=== PATIENT | male | born 1975 | race Caucasian/White ===

== ENCOUNTER 2023-10-29 15:05 | Emergency (ER) | payer BC ==
--- NOTE | 2023-10-29 15:35 | ED Physician Documentation ---
PD HPI LOWER EXT INJURY - Stated complaint Stated Complaint: RT FOOT INJ - Chief complaint Chief Complaint: Ext Problem - History obtained from History obtained from: Patient - Additional information Additional information: 48-year-old gentleman who is [place] from [place] (he lives and works in [facility] for the [employer]) had heel spur surgery on the right foot done in [place] 2 weeks ago. He was doing very well postop and was cleared for regular shoe use by his intelligence analyst at the postop visit. 2 nights ago he was getting out of the car and basically smacked his foot down hard and has significantly more pain now. PD PAST MEDICAL HISTORY - Past Medical History Past Medical History: No - Past Surgical History Past Surgical History: Yes - Present Medications Home Medications: Ambulatory Orders Medication Instructions Recorded Confirmed cephALEXin [Keflex] 500 mg PO Q6H #28 cap 10/29/23 - Allergies Allergies/Adverse Reactions: Allergies Allergy/AdvReac Type Severity Reaction Status Date / Time No Known Drug Allergies Allergy Verified 10/29/23 15:14 - Social History Does the pt smoke?: No Smoking Status: Never smoker Does the pt drink ETOH?: No Does the pt have substance abuse?: No - Immunizations Immunizations are current?: Yes PD ED PE NORMAL - Vitals Vital signs reviewed: Yes - General General: Alert and oriented X 3, No acute distress - Extremities Extremities: Other (There is a tiny dehisced incision on the medial side of the right calcaneus with diffuse tenderness in that area. There was just a drop of material in it which was sent for culture. No cellulitis though.) - Neuro Neuro: Alert and oriented X 3, Normal speech Results - Vitals Vitals: Vital Signs - 24 hr 10/29/23 15:11 Temperature 36.7 C Heart Rate 96 Respiratory 16 Rate Blood Pressure 143/92 H O2 Saturation 99 - Rads (name of study) R foot XR-NAD Relevant Findings:: Final report received, EMP independent interpretation of test PD Medical Decision Making - ED course ED course: He is 2 weeks out from a heel spur surgery and has increased pain over the last 2 days after minor trauma. The wound is slightly dehisced and there is just a little bit of possible pus in the wound which was sent for culture although there is no cellulitis or other sign of infection. His x-ray was negative for new findings. He is placed on Keflex pending his wound culture. Advised to go back into the boot. He has follow-up with his intelligence analyst on Wednesday, 3 days. Departure - Departure Disposition: 01 Home, Self Care Clinical Impression: Pain of lower extremity Qualifiers: Laterality: right Qualified Code(s): M79.604 - Pain in right leg Condition: Good Record reviewed to determine appropriate education?: Yes Prescriptions: cephALEXin [Keflex] 500 mg PO Q6H #28 cap Comments: I am worried about an early infection and I sent antibiotics electronically to the [facility] in [place]. I would go back in the boot until you follow-up with your intelligence analyst on Wednesday as scheduled. We are performing a wound culture, the results should be done in 48-72 hours. If antibiotic change is necessary we will call you. Return if worse in the meantime, especially if you develop increased pain, fevers, cannot keep down the medication. Forms: PCP List
--- NOTE | 2023-10-29 16:08 | CONSULTATION NOTE ---
Referring Provider Name of Referring Provider:: Dr. Grove Consult Date: 10/29/23 History of Present Illness - History of Present Illness HPI Comment/Other: Sang Ronquillo is a 48-year-old male that presents with a 6-day history of progressive swelling and redness involving his right foot and lateral ankle region. Denies any preceding trauma to this portion of his leg. Nor is he had any cuts or open wounds. Patient is denies any history of a longstanding chronic infections of his leg in the past. When he initially noted early symptoms particularly about the base of his great toe he thought this was a gout attack. This apparently has been a problem in the past. He obtained antigout medication from his primary care physician last Wednesday. Began taking the medication but did not note significant improvement in his symptoms. He denied any actual fevers or chills. He attempted to be evaluated by his PCP but was unable to obtain an appointment. The day of his admission he began noticing hemorrhagic bullae on the dorsum of his great toe. His generalized pain involving his foot and lateral ankle worsening which prompted his evaluation here in the emergency room. History - Past Medical History MRSA Hx?: No Meds/Allgy - Home Medications Home Medications: Ambulatory Orders Medication Instructions Recorded Confirmed No Known Home Medications 10/29/23 10/29/23 - Allergies Allergies/Adverse Reactions: Allergies Allergy/AdvReac Type Severity Reaction Status Date / Time No Known Drug Allergies Allergy Verified 10/29/23 15:14 Exam - Vital Signs Vital Signs: Vital Signs x48h Temp Pulse Resp BP Pulse Ox 10/29/23 15:11 36.7 C 96 16 143/92 H 99 - Physical Exam Comments/Other: Examination: Patient was afebrile. His right leg showed hemorrhagic bullae over the dorsum of his right great toe near the MTP joint. Had surrounding erythema and swelling in his medial forefoot to the midfoot area. On the right lateral ankle and distal lateral calf he also had some erythema and mild swelling as well. Underlying musculature also appeared swollen. Sensation testing showed he had slight diminished feeling in the first dorsal webspace of the foot. Otherwise he had symmetrical sensory examination to light touch throughout the rest of his foot and calf regions. Patient had active flexion extension of all his digits. Was able to hold his great toe in extension against resistance. Passive range of motion of his ankle and his toes in flexion extension and eversion and inversion. Intact and did not provoke an increase in pain in his foot or ankle. X-rays: Films of his foot and ankle region showed no obvious osseous abnormalities Conclusion/Plan - Other Other Results/Comments: Assessment: Cellulitis involving the right medial forefoot/midfoot as well as the lateral ankle and distal calf Plan: Agree with the plan to admit the patient to medicine for antibiotic coverage and continued observation. At this time he does not present with the clinical impression of a compartment syndrome that would require any kind of surgical fasciotomy. Will continue observe the patient while he is in-house to see if his condition worsens.
--- NOTE | 2023-10-29 16:17 | XRAY Report ---
PROCEDURE: Foot 3+V RT INDICATIONS: foot inj TECHNIQUE: 3 views of the foot were acquired. COMPARISON: None. FINDINGS: Bones: No fractures or dislocations. There is mild hallux valgus. No suspicious bony lesions. Soft tissues: No tibiotalar joint effusion. Achilles tendon appears normal. IMPRESSION: No acute right foot fracture or dislocation. Mild hallux valgus. Reviewed by: Musa Andrews MD on 10/29/2023 4:15 PM PDT Approved by: Musa Andrews MD on 10/29/2023 4:15 PM PDT Station ID: [id number]
[2023-10-29 16:47] VITALS: BP 155/100; O2SAT 100
== END 2023-10-29 16:44 | disposition home or self-care (01) ==
LOC: ED 15:05
DX: M79.604 Pain in right leg (principal)
CPT/HCPCS: 87070; 87181; 87205; 99284